=== PATIENT | male | born 1980 | race Caucasian/White ===

== ENCOUNTER 2018-05-20 14:09 | Emergency (ER) | payer OTHER ==
[~2018-05-20] VITALS: Ht 175.3 cm; Wt 68.0 kg
--- NOTE | 2018-05-20 14:15 | NUR ---
CHRISTIANO GUTHRIE AT BEDSIDE FOR MSE.
--- NOTE | 2018-05-20 14:26 | NUR ---
Patient discharged to home in stable conditon. Written and verbal after care instructions given. Patient verbalizes understanding of instructions. PT D/C W/ PRESCRIPTION. ALL BELONGINGS W/ PT. PT SELF-AMBULATED W/O DIFFICULTY.
[2018-05-20 14:27] VITALS: BP 116/66
--- NOTE | 2018-05-20 14:27 | NUR ---
PT PROVIDED W/ INFORMATION RE HOMELESS SHELTERS AND CILNICS. ALL RESOURCES PROVIDED, PT STATES HE WILL RETURN TO PRIOR LIVING ARRANGEMENT: STREET.
== END 2018-05-20 14:27 | disposition home or self-care (01) ==
LOC: ER 14:09
DX: L03.113 Cellulitis of right upper limb (principal); L03.114 Cellulitis of left upper limb; L03.116 Cellulitis of left lower limb; Z59.0 Homelessness
CPT/HCPCS: A4663